=== PATIENT | female | born 1980 | race Caucasian/White ===

== ENCOUNTER 2019-06-29 04:13 | Emergency (ER) | payer OTHER ==
[~2019-06-29] VITALS: Ht 170.2 cm; Wt 68.0 kg
[2019-06-29 04:20] VITALS: BP 130/80
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
[2019-06-29] MEDS ORDERED: HYDROmorphone 1mg/ml Carpuject IVP ONE (05:00)
[2019-06-29 06:03] LABS: ANION GAP 17 mmol/L (5-15); BLOOD UREA NITROGEN 11 mg/dL (7-18); CALCIUM 8.3 MG/DL (8.5-10.1); CARBON DIOXIDE 22 MMOL/L (21-32); CHLORIDE 105 MMOL/L (98-107); CREATININE 0.8 MG/DL (0.55-1.30); POTASSIUM 3.7 MMOL/L (3.5-5.1); SODIUM 144 MMOL/L (136-145)
[2019-06-29 06:08] LABS: ALANINE AMINOTRANSFERASE 137 U/L (12-78); ALBUMIN 3.8 G/DL (3.4-5.0); ALBUMIN/GLOBULIN RATIO 0.9 (1.0-2.7); ALKALINE PHOSPHATASE 86 U/L (46-116); ASPARTATE AMINO TRANSFERASE 137 U/L (15-37); BILIRUBIN,TOTAL 0.2 MG/DL (0.2-1.0)
[2019-06-29 06:52] VITALS: BP 125/82
[2019-06-29 07:42] VITALS: BP 123/86
== END 2019-06-29 07:42 ==
LOC: EDBD 04:13 → EMR 05:33
DX: Z00.00 Encounter for general adult medical examination without abnormal findings (principal)
CPT/HCPCS: 36415; 80053; 84702; 86850; 86900; 86901; 96374; 99284; G0480